=== PATIENT | male | born 2000 | race Caucasian/White ===

== ENCOUNTER 2025-02-02 15:24 | Emergency (ER) | payer SELFPAY ==
[2025-02-02 15:39] VITALS: BP 128/64
[2025-02-02 15:54] LABS: Hematocrit 39.5 % (39.0-52.0); Hemoglobin 13.5 g/dL (13.0-18.0); Mean Corp Hgb Conc. 34.2 g/dL (33.0-37.0); Mean Corpuscular Volume 86.6 fL (80.0-94.0); Nucleated Red Blood Cells % 0 % (-); Platelet Count 201 10^3/uL (130-400); Red Cell Dist. Width 12.2 % (11.5-14.5)
[2025-02-02 16:20] LABS: ALT (SGPT) 23 U/L (0-50); AST (SGOT) 38 U/L (17-59); Albumin 4.7 g/dl (3.5-5.0); Alkaline Phosphatase 78 U/L (38-126); Blood Urea Nitrogen 13 mg/dl (9-20); Calcium 10.0 mg/dl (8.4-10.2); Carbon Dioxide 25 mmol/L (22-30); Chloride 104 mmol/L (98-107); Glucose 199 mg/dl (70-99); Sodium 138 mmol/L (135-145); Total Protein 7.6 g/dl (6.3-8.2); eGFR > 60.00
--- NOTE | 2025-02-02 19:11 | ED.GENMED ---
History of Present Illness
General
Chief Complaint: Dehydration Symptoms
Source: patient
Exam Limitations: none
Time Seen by Provider: 02/02/25 18:57
History of Present Illness
History of Present Illness:
25-year-old male presents via EMS for evaluation. 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 He states he was working in a van without air conditioning today and was in and out of the vehicle multiple times. He started to feel lightheaded sweaty headache and short
of breath. He went into a convenience store explaining the symptoms and they called an ambulance. He states since being in the ambulance receiving IV fluids and an air conditioning he feels much better. He still notes a slight headache. Of note,
shortly before the symptoms started the patient did get stung by a bee on the right leg. He has been stung before without any significant reaction. There was no development of hives or throat closing sensation.
Phy Exam
Physical Exam
Physical Exam:
General: Well-appearing male no acute respiratory distress
HEENT normocephalic atraumatic
Heart: Regular rate and rhythm
Lungs: Clear no wheeze or stridor
Skin is warm no rash
Extremities: No cyanosis or edema
Neurologic exam: Alert and oriented normal gait conversing appropriately
Course
Orders/Labs/Results
Orders:
Orders
02/02/25 15:42
Electrocardiogram (*1) Urgent
Reason for Study: Vertigo / Dizzy
EKG- Treatment ONCE
02/02/25 15:44
CPK [Creatine Phosphokinase] Urgent
Complete Blood Count/With Diff Urgent
Comprehensive Metabolic Panel Urgent
Abnormal Lab Results
02/02/25
15:44
WBC 12.1 H 10^3/uL
(4.8-10.8)
RBC 4.56 L 10^6/uL
(4.70-6.10)
MPV 12.2 H fL
(7.4-10.4)
Absolute Neuts (auto) 10.4 H 10^3/uL
(1.4-6.5)
Absolute Lymphs (auto) 1.0 L 10^3/uL
(1.2-3.4)
Neutrophils % 86.4 H %
(42.2-75.2)
Lymphocytes % 8.5 L %
(20.5-51.1)
Glucose 199 H mg/dl
(70-99)
02/02/25 15:44
02/02/25 15:44
Vital Signs
Initial and Last Documented VS:
Initial Vital Signs
Temp Pulse Resp BP Pulse Ox
98.6 F 73 20 128/64 98
02/02/25 15:39 02/02/25 15:39 02/02/25 15:39 02/02/25 15:39 02/02/25 15:39
Last Documented Vital Signs
Temp Pulse Resp BP Pulse Ox
98.6 F 73 20 128/64 98
02/02/25 15:39 02/02/25 15:39 02/02/25 15:39 02/02/25 15:39 02/02/25 15:39
MDM/Problems Addressed
Differential Diagnosis Includes:
Patient presented with near syncope diaphoretic episode with headache. No arrhythmias noted here. EKG shows sinus rhythm with early repolarization. Labs without significant electrolyte abnormality. Suspect heat related illness that has since
been improved with administration of IV fluids by EMS. Offered Tylenol for his residual headache however he declined stating he wanted to go home and sleep it off. I think this is reasonable. No indication for admission
*Pulse Oximetry
SaO2: 98
Oxygen Mode of Delivery: Room air
Patient hypoxic: no
*Critical Care Note
Total Time (30-74mins, 75-104mins- exclusive of procedures): Not Applicable
ED Attending Note
-
Portions of this chart may have been created with voice recognition software.� Occasional wrong word or��sound alike� substitutions may have occurred due to the inherent limitations of voice recognition software.
Discharge Plan
Departure
Patient Disposition: Home (Routine Discharge)
Date of Disposition: 02/02/25
Time of Disposition: 19:15
Patient with high blood pressure during this ER visit?: No
Discharge Problem:
Near syncope
Instructions: Dehydration, Adult (DC), Heat Exhaustion and Heat Stroke (DC)
Activity Restrictions/Additional Instructions:
Stay hydrated. Rest. Use Tylenol if needed for headache. Return here if worse otherwise follow-up with your doctor.
Discharge Date and Time
Print Language: AMHARIC
[2025-02-02 19:26] VITALS: BP 134/76
== END 2025-02-02 19:36 | disposition home or self-care (01) ==
LOC: EMR 15:24
PROVIDERS: Emergency Medicine; EMERGENCY PHYSICIAN Emergency Medicine
DX: R55 Syncope and collapse (principal); R51.9 Headache, unspecified
CPT/HCPCS: 99284; 80053; 82550; 85025; 93005